=== PATIENT | male | born 1970 | race Caucasian/White ===

== ENCOUNTER 2017-08-13 10:51 | Emergency (ER) | payer OTHER ==
--- NOTE | 2017-08-13 11:08 | EDPHY ---
H & P Time Seen by Provider: 08/13/17 11:01 HPI/ROS: 46-year-old male playing touch football, was tackled injured his right shoulder. No numbness or tingling in his arm or hand. He has a prior history of shoulder surgery dating back to his college years. Review of systems As per HPI General no fever no chills no weakness HEENT no eye pain no eye discharge. No eye redness, no sore throat Respiratory no cough, no shortness of breath Cardiac no chest pain, no peripheral edema GI no abdominal pain, no diarrhea, no constipation, no nausea, no vomiting no flank pain, no hematuria, no dysuria Musculoskeletal no myalgias, positive joint pain Heme no easy bruising, no easy bleeding Endo no polyuria, no polydipsia Skin no rashes, no pruritus Neuro no syncope, no dizziness, no headaches Psych is no suicidal ideation, no homicidal ideation Past Medical/Surgical History: Hypothyroid Social History: Denies alcohol or drug use Smoking Status: Never smoked Physical Exam: 46-year-old male Alert and oriented in no acute distress nontoxic appearance, afebrile Atraumatic normocephalic Neck no JVD Lungs clear to auscultation, no respiratory distress Heart regular rate and rhythm Extremities no cyanosis clubbing edema Right shoulder-tender to palpation at AC joint, distal clavicle elevated consistent with a type 3 AC separation Sensation intact at lateral deltoid, and hand Full range of motion hand, wrist, elbow Limited range of motion at shoulder secondary to pain at AC joint Constitutional: Initial Vital Signs Temperature (C) 36.6 C 08/13/17 11:02 Heart Rate 89 08/13/17 11:02 Respiratory Rate 18 08/13/17 11:02 Blood Pressure 139/88 H 08/13/17 11:02 O2 Sat (%) 97 08/13/17 11:02 O2 Delivery Mode Room Air Allergies/Adverse Reactions: Penicillins Allergy (Verified 08/13/17 11:01) Home Medications: Medication Instructions Recorded Levothyroxine 11/26/13 Hydrocodone/Acetaminophen [Freedom 1 - 2 tab PO Q6H PRN #16 tab 08/13/17 5/325 (*)] Liothyronine Sodium 08/13/17 Medical Decision Making - Diagnostics Imaging Results: Imaging Impressions Clavicle X-Ray 08/13/17 11:06 Impression: Third degree AC joint separation. Shoulder X-Ray 08/13/17 11:07 Impression: AC separation. Shoulder arthritis. ED Course/Re-evaluation: Patient seen and evaluated for fall while playing touch football, with right shoulder/right clavicle pain X-ray AC separation Impression Type 3 AC separation Plan Follow up with Orthopedics [facility] for pain medication Differential Diagnosis: Clinical fracture, acromioclavicular separation, shoulder dislocation, humeral fracture - Data Points Medications Given: Discontinued Medications Hydrocodone Bitart/Acetaminophen (Freedom 5/325mg Prepack#6) 1 btl TAKEHOME EDNOW ONE Stop: 08/13/17 11:54 Last Admin: 08/13/17 11:59 Dose: 1 btl Departure - Departure Disposition: Home, Routine, Self-Care Clinical Impression: Separation of right acromioclavicular joint, type 3 Condition: Good Instructions: Hydrocodone/Acetaminophen (By mouth), Acromioclavicular Separation (ED) Referrals: Ling Krishna MD [Primary Care Provider] - As per Instructions Giuliano Swanson MD [Medical Doctor] - As per Instructions Prescriptions: Hydrocodone/Acetaminophen [Freedom 5/325 (*)] 1 - 2 tab PO Q6H PRN #16 tab PRN Reason: Pain, Moderate
[2017-08-13] MEDS ORDERED: HYDROCOD/APAP 5/325 PREPACK#6 BTL TAKEHOME ONE (11:53)
[2017-08-13 12:02] VITALS: BP 133/74; PULSE 83; RESP 19; TEMP 98.1; O2SAT 96
== END 2017-08-13 12:02 | disposition home or self-care (01) ==
LOC: CED 10:51
DX: S43.101A Unspecified dislocation of right acromioclavicular joint, initial encounter (principal); W51.XXXA Accidental striking against or bumped into by another person, initial encounter; Y99.8 Other external cause status; Y93.61 Activity, american tackle football
CPT/HCPCS: 73000-PO; 73030-PO

== ENCOUNTER 2018-06-12 14:31 | Emergency (ER) | payer BC ==
--- NOTE | 2018-06-12 15:05 | EDPHY ---
H & P Stated Complaint: laceration left thumb Time Seen by Provider: 06/12/18 14:53 HPI/ROS: CHIEF COMPLAINT: Thumb laceration HISTORY OF PRESENT ILLNESS: The patient is a 47-year-old man who comes to the emergency department complaining of laceration to the tip of his left thumb. 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 He has no avulsion to the tip of his thumb. It does not involve the nail or nail bed. No signs of fracture or crush injury. Severity: Minor Modifying factors: None REVIEW OF SYSTEMS: Constitutional: denies: chills, fever, recent illness, recent injury EENTM: denies: blurred vision, double vision, nose congestion Respiratory: denies: cough, shortness of breath Cardiac: denies: chest pain, irregular heart rate, lightheadedness, palpitations Gastrointestinal/Abdominal: denies: abdominal pain, diarrhea, nausea, vomiting, blood streaked stools Genitourinary: denies: dysuria, frequency, hematuria, pain Musculoskeletal: denies: joint pain, muscle pain Skin: See HPI Neurological: denies: headache, numbness, paresthesia, tingling, dizziness, weakness Hematologic/Lymphatic: denies: blood clots, easy bleeding, easy bruising Immunologic/allergic: denies: HIV/AIDS, transplant 10 systems reviewed and negative except as noted EXAM: GENERAL: Well-appearing, well-nourished and in no acute distress. HEAD: Atraumatic, normocephalic. EYES: Pupils equal round and reactive to light, extraocular movements intact, sclera anicteric, conjunctiva are normal. ENT: TMs normal, nares patent, oropharynx clear without exudates. Moist mucous membranes. NECK: Normal range of motion, supple without lymphadenopathy or JVD. LUNGS: Breath sounds clear to auscultation bilaterally and equal. No wheezes rales or rhonchi. HEART: Regular rate and rhythm without murmurs, rubs or gallops. ABDOMEN: Soft, nontender, normoactive bowel sounds. No guarding, no rebound. No masses appreciated. BACK: No CVA tenderness, no spinal tenderness, step-offs or deformities EXTREMITIES: Patient has a 1 x 1 cm flap like avulsion to the tip of his left thumb. It does not involve the finger nail or nail bed. No bony involvement. Normal range of motion, no pitting or edema. No clubbing or cyanosis. NEUROLOGICAL: Cranial nerves II through XII grossly intact. Normal speech, normal gait. 5/5 strength, normal movement in all extremities, normal sensation , normal reflexes PSYCH: Normal mood, normal affect. SKIN: See above Source: Patient Exam Limitations: No limitations - Personal History Current Tetanus/Diphtheria Vaccine: Yes Tetanus Vaccine Date: 2015 - Medical/Surgical History Hx Asthma: Yes Hx Chronic Respiratory Disease: No Hx Diabetes: No Hx Cardiac Disease: No Hx Renal Disease: No Hx Cirrhosis: No Hx Alcoholism: No Hx HIV/AIDS: No Hx Splenectomy or Spleen Trauma: No Other PMH: med hx-HYPOTHYROIDISM,. surg-rt knee and shoulder - Social History Smoking Status: Never smoked Alcohol Use: Sober Drug Use: None Constitutional: Initial Vital Signs Temperature (C) 36.9 C 06/12/18 14:43 Heart Rate 58 L 06/12/18 14:43 Respiratory Rate 14 06/12/18 14:43 Blood Pressure 109/74 06/12/18 14:43 O2 Sat (%) 96 06/12/18 14:43 O2 Delivery Mode Room Air Allergies/Adverse Reactions: Penicillins Allergy (Verified 06/12/18 14:42) Home Medications: Medication Instructions Recorded Levothyroxine 11/26/13 Liothyronine Sodium 08/13/17 Albuterol PRN 06/12/18 Medical Decision Making Procedures: Procedure: Laceration repair. Verbal consent was obtained from the patient. The 2 cm finger tip laceration was anesthetized with 0.5% bupivacaine digital block. The wound was irrigated copiously according to protocol, draped and explored to its base. It was approximately 2 mm deep. There were no deep structures involved. No tendon, nerve, or vascular injury was identified when explored. No foreign body was identified. The wound was repaired with 6.0 Prolene, 4 sutures, interrupted. The wound repair was simple without wound margin revisement or multiple flap alignment. The procedure was performed by myself. A dressing was then placed with sterile gauze and bacitracin. ED Course/Re-evaluation: Patient tolerated repair. We discussed the fact that this flap of skin will likely . We have contacted down with sutures as a physiologic Band-Aid. He understands and agrees with this plan. Differential Diagnosis: Partial list of the Differential diagnosis considered include but were not limited to; laceration, foreign body and although unlikely based on the history and physical exam, I also considered fracture, nail bed injury. I discussed these differential diagnoses and the plan with the patient as well as the usual and expected course. The patient understands that the diagnosis is provisional and that in medicine we are not always correct and that further workup is often warranted. Usual and customary warnings were given. All of the patient's questions were answered. The patient was instructed to return to the emergency department should the symptoms at all worsen or return, otherwise to followup with the physician as we discussed. Departure - Departure Disposition: Home, Routine, Self-Care Clinical Impression: Laceration Condition: Fair Instructions: Laceration (ED) Additional Instructions: Have your sutures removed in 10 days. Referrals: Ling Krishna MD [Primary Care Provider] - As per Instructions
[2018-06-12 15:55] VITALS: BP 112/72
== END 2018-06-12 15:48 | disposition home or self-care (01) ==
LOC: CED 14:31
PROC: 0HQGXZZ Repair Left Hand Skin, External Approach (ICD-10-PCS; principal; 2018-06-12)
DX: S61.012A Laceration without foreign body of left thumb without damage to nail, initial encounter (principal); W26.8XXA Contact with other sharp object(s), not elsewhere classified, initial encounter; Y93.G1 Activity, food preparation and clean up